=== PATIENT | male | born 1960 | race Caucasian/White ===

== ENCOUNTER 2019-09-03 13:37 | Emergency (ER) | payer BC ==
--- NOTE | 2019-09-03 14:11 | EDM.PDOC ---
ED HPI GENERAL MEDICAL PROBLEM - General Chief Complaint: Lower Extremity Injury/Pain Stated Complaint: LT CALF DOWN , PAINFUL Time Seen by Provider: 09/03/19 14:08 Source of Information: Reports: Patient History Limitations: Reports: No Limitations - History of Present Illness INITIAL COMMENTS - FREE TEXT/NARRATIVE: Left calf pain,discoloration. Had an injury by a ladder 2 weeks ago. Painful. he takes Warfarin for Afib and ah/o DVT. He has no SOB or Chest pain. - Related Data Allergies Allergy/AdvReac Type Severity Reaction Status Date / Time No Known Allergies Allergy Verified 02/09/15 15:45 Home Meds: Home Meds Naproxen [Naprosyn] 500 mg PO BIDPC #30 tab 06/06/14 [Rx] Past Medical History Other Cardiovascular History: ablation x3 Review of Systems - Review of Systems Review Of Systems: Comprehensive ROS is negative, except as noted in HPI. ED EXAM, GENERAL - Physical Exam Exam: See Below Exam Limited By: No Limitations General Appearance: Alert, WD/WN, No Apparent Distress Cardiovascular: Normal Peripheral Pulses Extremities: Redness, Other (Echymosis,and tender distal calf. Left.) Course - Vital Signs Last Recorded V/S: Last Vital Signs Temp 97.6 F 09/03/19 13:58 Pulse 87 09/03/19 13:58 Resp 16 09/03/19 13:58 BP 146/84 H 09/03/19 13:58 Pulse Ox 99 09/03/19 13:58 - Orders/Labs/Meds Labs: Laboratory Tests 09/03/19 Range/Units 14:15 PT 32.7 H (9.0-11.1) sec INR 3.27 H (1.00-1.24) Departure - Departure Time of Disposition: 14:33 Disposition: Home, Self-Care 01 Condition: Good Clinical Impression: Abrasion - Discharge Information Instructions: Contusion, [id number] Referrals: Juan Manuel Rahman MD [Primary Care Provider] - (PRN) Forms: ED Department Discharge Sepsis Event Note - Focused Exam Vital Signs: Vital Signs Temp Pulse Resp BP Pulse Ox 09/03/19 13:58 97.6 F 87 16 146/84 H 99 Date Exam was Performed: 09/03/19 Time Exam was Performed: 14:33 - Problem List & Annotations (1) Bruise SNOMED Code(s): 757484593 Code(s): T14.8XXA - OTHER INJURY OF UNSPECIFIED BODY REGION, INITIAL ENCOUNTER Status: Acute - Problem List Review Problem List Initiated/Reviewed/Updated: Yes - Assessment/Plan Plan: Ice,rest,elevation. Return PRN.INR was 3.26
[2019-09-03 20:31] VITALS: BP 128/72; PULSE 90
== END 2019-09-03 14:40 | disposition home or self-care (01) ==
LOC: FB.ED 13:37
DX: S80.12XA Contusion of left lower leg, initial encounter (principal); I48.91 Unspecified atrial fibrillation; Z79.01 Long term (current) use of anticoagulants; W20.8XXA Other cause of strike by thrown, projected or falling object, initial encounter
CPT/HCPCS: 36415; 85610; 99283

== ENCOUNTER 2021-07-11 13:45 | Emergency (ER) | payer BC, OTHER ==
[2021-07-11] MEDS ORDERED: Acetaminophen/HYDROcodone 325-5 MG Tab PO ONE (13:46)
[2021-07-11] MEDS ORDERED: Ondansetron 4 MG Tab.DIS PO ONE ×2 (13:46→14:47)
[2021-07-11] MEDS ORDERED: Acetaminophen 500 MG Tab PO ONE (13:59)
[2021-07-11] MEDS ORDERED: Morphine 15 MG Tab.ER PO ONE (14:46)
[2021-07-11 18:09] VITALS: BP 147/83; PULSE 83
== END 2021-07-11 15:55 | disposition home or self-care (01) ==
LOC: FB.ED 13:45
DX: S87.81XA Crushing injury of right lower leg, initial encounter (principal); Z79.01 Long term (current) use of anticoagulants; Z79.899 Other long term (current) drug therapy; W23.0XXA Caught, crushed, jammed, or pinched between moving objects, initial encounter
CPT/HCPCS: 36415; 73590; 85610; 99283; A9270; Q0162; 99284

== ENCOUNTER 2024-01-18 22:43 | Emergency (ER) | payer OTHER ==
[2024-01-18 23:07] LABS: BASOPHILS ABSOLUTE AUTO 0.1 x10-3/uL (0.0-0.3); BASOPHILS PERCENT AUTO 1.2 % (0.3-3.8); EOSINOPHILS ABSOLUTE AUTO 0.2 x10-3/uL (0.0-0.6); EOSINOPHILS PERCENT AUTO 2.8 % (0.1-6.8); HEMATOCRIT 44.1 % (38.3-50.1); HEMOGLOBIN 15.2 g/dL (12.9-17.7); LYMPHOCYTES ABSOLUTE AUTO 2.4 x10-3/uL (0.5-4.5); LYMPHOCYTES PERCENT AUTO 38.1 % (15.8-45.3); MEAN CORPUSCULAR HEMOGLOBIN 32.4 pg (27.0-33.3); MEAN CORPUSCULAR HGB CONC 34.4 g/dL (28.7-35.3); MEAN CORPUSCULAR VOLUME 94.2 fL (80.8-98.7); MONOCYTES ABSOLUTE AUTO 0.6 x10-3/uL (0.0-1.2); MONOCYTES PERCENT AUTO 9.5 % (5.5-15.2); NEUTROPHILS ABSOLUTE AUTO 3.1 x10-3/uL (1.7-6.9); NEUTROPHILS PERCENT AUTO 48.4 % (40.3-71.8); PLATELET COUNT,PLT 190 x10(3)uL (117-477); RED BLOOD CELL COUNT 4.68 x10(6)uL (3.90-5.90); RED CELL DISTRIBUTION WIDTH 13.9 % (12.4-15.0); WHITE BLOOD CELL COUNT,WBC 6.3 x10-3/uL (3.2-10.1)
[2024-01-18] MEDS: Aspirin 81 MG Tab.Chew PO ONE (23:07)
[2024-01-18 23:12] LABS: BLOOD UREA NITROGEN,BUN 15 mg/dL (7-18); BUN/CREATININE RATIO 13.6 (9-20); CALCIUM 8.9 mg/dL (8.6-10.2); CARBON DIOXIDE,CO2 26 mmol/L (21-32); CHLORIDE,CL 104 mmol/L (100-110); CREATININE 1.1 mg/dL (0.70-1.30); EST CRCL DRUG DOSING (CG) 62.59 mL/min; ESTIMATED GFR 75 mL/min (>60); GLUCOSE RANDOM 149 mg/dL (80-116); POTASSIUM,K 3.9 mmol/L (3.5-5.3); SODIUM,NA 140 mmol/L (135-145)
[2024-01-18] MEDS: Nitroglycerin 0.4 MG Tab.SL SL PRN (23:17)
[2024-01-18 23:18] LABS: A/G RATIO 1.1; ALANINE AMINOTRANSFERASE,ALT 28 U/L (12-36); ALKALINE PHOSPHATASE 50 IU/L (56-112); ASPARTATE AMNIOTRANSFERASE,AST 21 IU/L (5-25); BILIRUBIN TOTAL 0.4 mg/dL (0.1-1.3); PROTEIN TOTAL,TP 7.6 g/dL (6.0-8.0)
[2024-01-18 23:30] LABS: INR 2.33 (1.00-1.24); PROTHROMBIN TIME 22.6 sec (9.0-11.1)
[2024-01-18 23:31] LABS: PTT,PARTIAL THROMBOPLSTIN TIME 32.1 SECONDS (24.4-33.2)
[2024-01-18] MEDS ORDERED: Morphine 4 MG/ML VIAL IVPUSH ONE (23:49)
[2024-01-18] MEDS ORDERED: Naloxone 0.4 MG/ML SDV IVPUSH PRN (23:50)
[2024-01-18] MEDS: Sodium Chloride 0.9% 10 ML Syringe FLUSH PRN (23:55)
[2024-01-18] MEDS: Morphine 4 MG/ML VIAL IVPUSH ONE (23:55)
[2024-01-19 01:07] VITALS: BP 101/73; PULSE 65
== END 2024-01-19 00:58 | disposition home or self-care (01) ==
LOC: FB.ED 22:43
DX: R07.81 Pleurodynia (principal); I10 Essential (primary) hypertension; Z79.01 Long term (current) use of anticoagulants; W18.30XA Fall on same level, unspecified, initial encounter
CPT/HCPCS: 36415; 71045; 80053; 83880; 84484; 85025; 85610; 85730; 93005; 96374; 99285; A9270; J2270; J3490